=== PATIENT | female | born 1945 | race Caucasian/White ===

== ENCOUNTER 2018-05-26 05:17 | Inpatient (IN) | payer MEDICARE, BC ==
[~2018-05-26] VITALS: Ht 170.2 cm; Wt 81.0 kg
[2018-05-26] MEDS ORDERED: SIMV20TA5 PO (05:38)
[2018-05-26] MEDS ORDERED: LOSA25TA96 PO (05:38)
[2018-05-26 05:44] LABS: BASOPHILS % (AUTO) 0.3 % (0-1); EOSINOPHILS # (AUTO) 0.1 X10'3 (0-0.9); EOSINOPHILS % (AUTO) 1.3 % (0-6); HEMATOCRIT 41.4 % (35.0-45.0); HEMOGLOBIN 13.9 g/dl (12.0-16.0); LYMPHOCYTES # (AUTO) 1.1 X10'3 (1.1-4.8); LYMPHOCYTES % (AUTO) 15.4 % (21-51); MEAN CORPUSCULAR HEMOGLOBIN 30.6 PG (27.0-31.0); MEAN CORPUSCULAR HGB CONC 33.5 % (33.0-36.5); MEAN CORPUSCULAR VOLUME 91.4 FL (78-98); MEAN PLATELET VOLUME 9.3 FL (7.4-10.4); MONOCYTES # (AUTO) 0.7 X10'3 (0-0.9); MONOCYTES % (AUTO) 10.1 % (2-12); NEUTROPHILS % (AUTO) 72.9 % (42-75); PLATELET COUNT 215 X10'3 (140-440); RED BLOOD COUNT 4.53 X10'6 (4.20-5.60); RED CELL DISTRIBUTION WIDTH 13.4 % (11.5-14.5); WHITE BLOOD COUNT 6.9 X10'3 (4.5-11.0)
[2018-05-26] MEDS ORDERED: aspirin 325mg tablet PO ONE (05:55)
[2018-05-26 06:04] LABS: ALANINE AMINOTRANSFERASE 25 U/L (12-78); ALBUMIN 3.3 G/DL (3.4-5.0); ALBUMIN/GLOBULIN RATIO 0.8 (1.1-1.5); ALKALINE PHOSPHATASE 103 IU/L (46-116); ANION GAP 11 (8-16); ASPARTATE AMINO TRANSFERASE 20 U/L (10-37); BILIRUBIN,TOTAL 0.3 MG/DL (0.1-1.0); BLOOD UREA NITROGEN 16 MG/DL (7-18); BUN/CREATININE RATIO 19.3 (6.6-38.0); CHLORIDE 104 MMOL/L (99-107); CREATININE 0.83 MG/DL (0.40-0.90); GLUCOSE 175 MG/DL (70-104); POTASSIUM 4.2 MMOL/L (3.5-5.1); SODIUM 139 MMOL/L (135-145); TOTAL CARBON DIOXIDE 24.1 MMOL/L (24-32); TOTAL PROTEIN 7.3 G/DL (6.4-8.2); eGFR 67 ML/MIN
[2018-05-26 06:14] LABS: PARTIAL THROMBOPLASTIN TIME 32 SECONDS (22-32); PROTHROMBIN TIME 10.2 SECONDS (9.0-12.0)
[2018-05-26] MEDS ORDERED: ondansetron/PF 4mg/2ml inj IV ONE (06:20)
[2018-05-26] MEDS ORDERED: nitroGLYCERIN 1gm ointment UD TP ONE (06:30)
[2018-05-26] MEDS ORDERED: potassium Cl 40MEQ/NS 500ml 500 ML IV PRN ×2 (07:50)
[2018-05-26] MEDS ORDERED: magnesium 4gm in 100ml NS 100 ML IV PRN (07:50)
[2018-05-26] MEDS ORDERED: morphine 2 MG/ML inj. syringe IV PRN ×2 (07:50)
[2018-05-26] MEDS ORDERED: magnesium Cl slow-release 64mg tablet PO PRN (07:50)
[2018-05-26] MEDS ORDERED: HYDROcodone/acetaminophen 10/325mg tab PO PRN (07:50)
[2018-05-26] MEDS ORDERED: magnesium hydroxide 30ml (MOM) UD suspension PO PRN (07:50)
[2018-05-26] MEDS ORDERED: HYDROcodone/acetaminophen 5mg/325mg tablet PO PRN (07:50)
[2018-05-26] MEDS ORDERED: potassium Cl 20 mEq SR tablet PO PRN ×2 (07:50)
[2018-05-26] MEDS ORDERED: bisacodyl 10mg suppository rectal RC PRN (07:50)
[2018-05-26] MEDS ORDERED: ondansetron/PF 4mg/2ml inj IV PRN (07:50)
[2018-05-26] MEDS ORDERED: mag hydrox/Alum hydrox/simeth 30ml oral suspension PO PRN (07:50)
[2018-05-26] MEDS ORDERED: guaiFENesin 200 MG/10 ML oral syrup UD cup PO PRN (08:00)
[2018-05-26] MEDS: nitroGLYCERIN 0.2mg/hour patch TD SCH (08:00)
[2018-05-26] MEDS: K and/or MAG REPLACEMENT MC SCH (08:00)
[2018-05-26] MEDS: aspirin 81mg tablet.DR PO SCH (08:00)
[2018-05-26] MEDS ORDERED: metoprolol tartrate 12.5mg (1/2 tablet) PO SCH (08:00)
[2018-05-26] MEDS ORDERED: enoxaparin 40mg/0.4ml syringe SUBCUT SCH (08:00)
[2018-05-26] MEDS ORDERED: nitroGLYCERIN 0.4mg SUBLingual tab SL PRN (08:05)
[2018-05-26] MEDS ORDERED: metoprolol tartrate 1mg/ml inj IV PRN (08:05)
[2018-05-26] MEDS ORDERED: aminophylline 250mg/10ml inj. IV PRN (08:05)
[2018-05-26] MEDS ORDERED: regadenoson 0.4mg/5ml syringe IV PRN (08:05)
[2018-05-26] MEDS: pantoprazole 40 MG vial IV SCH (08:37)
[2018-05-26] MEDS: docusate sod 100mg capsule PO SCH ×2 (08:39→19:38)
[2018-05-26] MEDS: azithromycin/NS 500mg/250ml 250 ML IV SCH (08:46)
[2018-05-26] MEDS ORDERED: heparin 10,000 units/1 ML INJ IV ONE (10:00)
[2018-05-26] MEDS ORDERED: heparin 10,000 units/1 ML INJ IV PRN (10:00)
[2018-05-26] MEDS: heparin 25,000 UNIT/250ml bag 250 ML IV SCH ×3 (10:40→20:35)
[2018-05-26] MEDS ORDERED: tirofiban 5mg in NS 100mL 100 ML IV SCH (16:00)
[2018-05-26 16:45] VITALS: BP 141/80
[2018-05-26] MEDS: tirofiban 5mg in NS 100mL 100 ML IV SCH ×2 (17:06→22:36)
[2018-05-26] MEDS ORDERED: temazepam 15mg capsule PO PRN (17:15)
[2018-05-26 18:00] VITALS: BP 151/83
[2018-05-26] MEDS: acetaminophen 325mg tablet PO PRN (19:17)
[2018-05-26] MEDS: metoprolol tartrate 25mg tablet PO SCH (19:39)
[2018-05-26 22:00] VITALS: BP 139/79
[2018-05-27] VITALS (11 sets, daily range): BP systolic 115–150; BP diastolic 56–86
[2018-05-27 03:26] LABS: ALANINE AMINOTRANSFERASE 26 U/L (12-78); ALBUMIN/GLOBULIN RATIO 0.8 (1.1-1.5); ALKALINE PHOSPHATASE 86 IU/L (46-116); ANION GAP 8 (8-16); ASPARTATE AMINO TRANSFERASE 59 U/L (10-37); BILIRUBIN,TOTAL 0.4 MG/DL (0.1-1.0); BLOOD UREA NITROGEN 13 MG/DL (7-18); BUN/CREATININE RATIO 15.9 (6.6-38.0); CALCIUM 8.8 MG/DL (8.5-10.1); CHLORIDE 106 MMOL/L (99-107); CHOL/HDL RATIO 4.4 (0.00-4.99); CHOLESTEROL 153 MG/DL (0-200); CREATININE 0.82 MG/DL (0.40-0.90); GLUCOSE 106 MG/DL (70-104); HDL CHOLESTEROL 35 MG/DL (35-60); LDL CHOLESTEROL 90 MG/DL (50-100); POTASSIUM 3.9 MMOL/L (3.5-5.1); SODIUM 142 MMOL/L (135-145); TOTAL CARBON DIOXIDE 28.4 MMOL/L (24-32); TOTAL PROTEIN 6.9 G/DL (6.4-8.2); TRIGLYCERIDES 137 MG/DL (20-135); eGFR 68 ML/MIN
[2018-05-27 03:30] LABS: BASOPHILS % (AUTO) 0.5 % (0-1); EOSINOPHILS # (AUTO) 0.1 X10'3 (0-0.9); EOSINOPHILS % (AUTO) 0.7 % (0-6); HEMATOCRIT 40.2 % (35.0-45.0); HEMOGLOBIN 13.4 g/dl (12.0-16.0); LYMPHOCYTES # (AUTO) 1.4 X10'3 (1.1-4.8); LYMPHOCYTES % (AUTO) 17.7 % (21-51); MEAN CORPUSCULAR HEMOGLOBIN 30.7 PG (27.0-31.0); MEAN CORPUSCULAR HGB CONC 33.4 % (33.0-36.5); MEAN CORPUSCULAR VOLUME 91.9 FL (78-98); MEAN PLATELET VOLUME 10.3 FL (7.4-10.4); MONOCYTES # (AUTO) 0.7 X10'3 (0-0.9); MONOCYTES % (AUTO) 8.9 % (2-12); NEUTROPHILS # (AUTO) 5.7 X10'3 (1.8-7.7); NEUTROPHILS % (AUTO) 72.2 % (42-75); PLATELET COUNT 217 X10'3 (140-440); RED BLOOD COUNT 4.38 X10'6 (4.20-5.60); RED CELL DISTRIBUTION WIDTH 13.5 % (11.5-14.5); WHITE BLOOD COUNT 7.9 X10'3 (4.5-11.0)
[2018-05-27] MEDS: tirofiban 5mg in NS 100mL 100 ML IV SCH (03:57)
[2018-05-27] MEDS: normal saline 1000ml 1,000 ML IV SCH ×2 (04:06→07:15)
[2018-05-27] MEDS: acetaminophen 325mg tablet PO PRN (04:13)
[2018-05-27] MEDS ORDERED: nitroGLYCERIN-Tridil 50MG/D5W 250 ML IV ONE (07:31)
[2018-05-27] MEDS ORDERED: iohexol 350MG/ML 100ml bottle IV ONE ×2 (07:31→08:34)
[2018-05-27] MEDS ORDERED: heparin 1,000unit/ml 10ml vial 10 ML ONE (07:31)
[2018-05-27] MEDS ORDERED: midazolam 2 mg/2 ml injection ONE (07:31)
[2018-05-27] MEDS ORDERED: iohexol 350 MG/ML 50ML vial IV ONE (07:31)
[2018-05-27] MEDS ORDERED: fentaNYL/PF 50MCG/1 ML 2ML syringe ONE (07:31)
[2018-05-27] MEDS ORDERED: LIDOcaine 1% (10mg/ml)w/preservative injection 20ml MDV ONE (07:31)
[2018-05-27] MEDS: pantoprazole 40 MG vial IV SCH (08:00)
[2018-05-27] MEDS: nitroGLYCERIN 0.2mg/hour patch TD SCH (08:00)
[2018-05-27] MEDS: aspirin 81mg tablet.DR PO SCH (08:00)
[2018-05-27] MEDS: docusate sod 100mg capsule PO SCH ×2 (08:00→20:10)
[2018-05-27] MEDS: metoprolol tartrate 25mg tablet PO SCH ×2 (08:00→20:12)
[2018-05-27] MEDS: azithromycin/NS 500mg/250ml 250 ML IV SCH (08:00)
[2018-05-27] MEDS: K and/or MAG REPLACEMENT MC SCH (08:00)
[2018-05-27] MEDS ORDERED: atorvastatin 20mg tablet PO SCH ×2 (08:00)
[2018-05-27] MEDS ORDERED: clopidogrel 300mg tablet ONE (08:54)
[2018-05-27] MEDS ORDERED: normal saline 1000ml 1,000 ML IV ONE (10:40)
[2018-05-27] MEDS ORDERED: cyclobenzaprine 10mg tablet PO PRN (10:45)
[2018-05-27] MEDS ORDERED: HYDROcodone/acetaminophen 10/325mg tab PO PRN (10:45)
[2018-05-27] MEDS ORDERED: OXAZEpam 15mg capsule PO PRN (10:45)
[2018-05-27] MEDS ORDERED: acetaminophen 325mg tablet PO PRN (10:45)
[2018-05-27] MEDS ORDERED: clopidogrel 300mg tablet PO ONE (10:45)
[2018-05-27] MEDS ORDERED: magnesium hydroxide 30ml (MOM) UD suspension PO SCH (21:00)
[2018-05-28 06:00] VITALS: BP 123/64
[2018-05-28 07:15] VITALS: BP_SYST 123
[2018-05-28] MEDS: docusate sod 100mg capsule PO SCH (07:15)
[2018-05-28] MEDS: metoprolol tartrate 25mg tablet PO SCH (07:15)
[2018-05-28] MEDS: pantoprazole 40 MG vial IV SCH (07:15)
[2018-05-28] MEDS: azithromycin/NS 500mg/250ml 250 ML IV SCH (07:16)
[2018-05-28 07:44] LABS: BASOPHILS % (AUTO) 0.5 % (0-1); EOSINOPHILS # (AUTO) 0.1 X10'3 (0-0.9); EOSINOPHILS % (AUTO) 1.6 % (0-6); HEMATOCRIT 39.2 % (35.0-45.0); HEMOGLOBIN 12.9 g/dl (12.0-16.0); LYMPHOCYTES # (AUTO) 1.2 X10'3 (1.1-4.8); LYMPHOCYTES % (AUTO) 19.7 % (21-51); MEAN CORPUSCULAR HEMOGLOBIN 30.2 PG (27.0-31.0); MEAN CORPUSCULAR HGB CONC 32.8 % (33.0-36.5); MEAN CORPUSCULAR VOLUME 91.9 FL (78-98); MONOCYTES # (AUTO) 0.6 X10'3 (0-0.9); MONOCYTES % (AUTO) 9.7 % (2-12); NEUTROPHILS # (AUTO) 4.1 X10'3 (1.8-7.7); NEUTROPHILS % (AUTO) 68.5 % (42-75); PLATELET COUNT 191 X10'3 (140-440); RED BLOOD COUNT 4.27 X10'6 (4.20-5.60); RED CELL DISTRIBUTION WIDTH 13.8 % (11.5-14.5); WHITE BLOOD COUNT 5.9 X10'3 (4.5-11.0)
[2018-05-28] MEDS ORDERED: clopidogrel 75mg tablet PO SCH (08:00)
[2018-05-28] MEDS ORDERED: enoxaparin 40mg/0.4ml syringe SUBCUT SCH (08:00)
[2018-05-28] MEDS: K and/or MAG REPLACEMENT MC SCH (08:00)
[2018-05-28] MEDS ORDERED: atorvastatin 20mg tablet PO SCH (08:00)
[2018-05-28] MEDS: nitroGLYCERIN 0.2mg/hour patch TD SCH (08:00)
[2018-05-28 08:05] LABS: ALANINE AMINOTRANSFERASE 22 U/L (12-78); ALBUMIN 2.8 G/DL (3.4-5.0); ALBUMIN/GLOBULIN RATIO 0.7 (1.1-1.5); ALKALINE PHOSPHATASE 70 IU/L (46-116); ANION GAP 5 (8-16); ASPARTATE AMINO TRANSFERASE 33 U/L (10-37); BILIRUBIN,TOTAL 0.4 MG/DL (0.1-1.0); BLOOD UREA NITROGEN 12 MG/DL (7-18); BUN/CREATININE RATIO 15.2 (6.6-38.0); CALCIUM 8.6 MG/DL (8.5-10.1); CHLORIDE 107 MMOL/L (99-107); CREATININE 0.79 MG/DL (0.40-0.90); GLUCOSE 114 MG/DL (70-104); MAGNESIUM 2.1 MG/DL (1.5-2.4); POTASSIUM 4.3 MMOL/L (3.5-5.1); SODIUM 142 MMOL/L (135-145); TOTAL CARBON DIOXIDE 30.4 MMOL/L (24-32); TOTAL PROTEIN 6.6 G/DL (6.4-8.2); eGFR 71 ML/MIN
[2018-05-28] MEDS ORDERED: aspirin 81mg tab.chew PO SCH (08:30)
[2018-05-28] MEDS ORDERED: aspirin 325mg tablet PO SCH (08:30)
[2018-05-28] MEDS ORDERED: NIT5P TD (11:04)
[2018-05-28] MEDS ORDERED: NITR0.4T51 SL (11:04)
[2018-05-28] MEDS ORDERED: CLOP75TA35 PO (11:04)
[2018-05-28] MEDS ORDERED: ASPI81TA52 PO (11:04)
[2018-05-28] MEDS ORDERED: SIMV80TA2 PO (11:04)
[2018-05-28] MEDS ORDERED: METO25TA6 PO (11:04)
== END 2018-05-28 13:30 | disposition home or self-care (01) | DRG 247 ==
LOC: ER 05:18 → ED HOLD 07:50 → OBSVTOIN 09:59 → PCU 3S 16:30
PROVIDERS: ADMIT Internal Medicine; ATTEND Internal Medicine
PROC: 4A023N7 Measurement of Cardiac Sampling and Pressure, Left Heart, Percutaneous Approach (ICD-10-PCS; principal; 2018-05-27)
PROC: 027034Z Dilation of Coronary Artery, One Artery with Drug-eluting Intraluminal Device, Percutaneous Approach (ICD-10-PCS; 2018-05-27)
PROC: B2111ZZ Fluoroscopy of Multiple Coronary Arteries using Low Osmolar Contrast (ICD-10-PCS; 2018-05-27)
PROC: B2151ZZ Fluoroscopy of Left Heart using Low Osmolar Contrast (ICD-10-PCS; 2018-05-27)
DX: I21.4 Non-ST elevation (NSTEMI) myocardial infarction (principal); E78.00 Pure hypercholesterolemia, unspecified; E78.5 Hyperlipidemia, unspecified; H40.9 Unspecified glaucoma; I10 Essential (primary) hypertension; I25.10 Atherosclerotic heart disease of native coronary artery without angina pectoris; J20.9 Acute bronchitis, unspecified; K21.9 Gastro-esophageal reflux disease without esophagitis; K44.9 Diaphragmatic hernia without obstruction or gangrene; Z98.49 Cataract extraction status, unspecified eye; Z88.2 Allergy status to sulfonamides; Z88.8 Allergy status to other drugs, medicaments and biological substances; Z79.899 Other long term (current) drug therapy; Z79.82 Long term (current) use of aspirin
CPT/HCPCS: 93306; 93458; 96372; 96374; 99285; C9600; 36415; 71045; 80053; 80061; 83735; 84484; 85025; 85347; 85610; 85730; 87070; 87502; 87503; 93005; 99152; A4620; A6257; C1725; C1760; C1769; C1874; C9113; G0378; J0456; J1644; J1650; J2001; J2250; J2405; J3010; J3246; J3490; J7030; Q9967

== ENCOUNTER 2023-09-11 09:03 | Day surgery (SDC) | payer MEDICARE, BC ==
[2023-09-08 11:07] LABS: BASOPHILS % (AUTO) 0.5 % (0-1); EOSINOPHILS # (AUTO) 0.1 X10'3 (0-0.9); EOSINOPHILS % (AUTO) 1.4 % (0-6); HEMATOCRIT 40.2 % (35.0-45.0); HEMOGLOBIN 13.6 g/dl (12.0-16.0); LYMPHOCYTES # (AUTO) 0.9 X10'3 (1.1-4.8); LYMPHOCYTES % (AUTO) 18.2 % (21-51); MEAN CORPUSCULAR HEMOGLOBIN 31.1 PG (27.0-31.0); MEAN CORPUSCULAR HGB CONC 33.8 g/dL (33.0-36.5); MEAN CORPUSCULAR VOLUME 91.9 FL (78-98); MEAN PLATELET VOLUME 9.1 FL (7.4-10.4); MONOCYTES # (AUTO) 0.4 X10'3 (0-0.9); MONOCYTES % (AUTO) 8.5 % (2-12); NEUTROPHILS # (AUTO) 3.6 X10'3 (1.8-7.7); NEUTROPHILS % (AUTO) 71.4 % (42-75); PLATELET COUNT 166 X10'3 (140-440); RED BLOOD COUNT 4.38 X10'6 (4.20-5.60); RED CELL DISTRIBUTION WIDTH 13.9 % (11.5-14.5); WHITE BLOOD COUNT 5.1 X10'3 (4.5-11.0)
[2023-09-08 11:19] LABS: APTT 32 SECONDS (22-32); PROTHROMBIN TIME 10.8 SECONDS (9.0-12.0)
[2023-09-08 11:20] LABS: ANION GAP 10 (8-16); BLOOD UREA NITROGEN 15 MG/DL (7-18); BUN/CREATININE RATIO 18.1 (10.0-20.0); CALCIUM 8.4 MG/DL (8.5-10.1); CHLORIDE 108 MMOL/L (99-107); CREATININE 0.83 MG/DL (0.40-0.90); GLUCOSE 123 MG/DL (70-104); POTASSIUM 4.2 MMOL/L (3.5-5.1); SODIUM 144 MMOL/L (135-145); TOTAL CARBON DIOXIDE 26.1 MMOL/L (24-32); eGFR 66 ML/MIN
[2023-09-11] VITALS (10 sets, daily range): BP systolic 102–154; BP diastolic 55–78; PULSE 63–88; RESP 14–19; TEMP 98; O2SAT 94–95
[~2023-09-11] VITALS: Ht 170.2 cm; Wt 88.0 kg
[~2023-09-11 09:03] MED LIST: CLOP75TA33 PO; LOSA-416 PO; METO25TA6 PO; NITR0.4T51 SL; ROSU40TA22 PO
[2023-09-11] MEDS ORDERED: ACET-812 PO (10:01)
[2023-09-11] MEDS ORDERED: LORA10TA7 PO (10:04)
[2023-09-11] MEDS ORDERED: FAMO10TA41 PO (10:04)
[2023-09-11] MEDS ORDERED: CYAN-34 PO (10:04)
[2023-09-11] MEDS ORDERED: UBID100C16 PO (10:06)
[2023-09-11] MEDS ORDERED: ASPI-1265 PO (10:06)
[2023-09-11] MEDS ORDERED: OMEG1CAP46 PO (10:06)
[2023-09-11] MEDS ORDERED: FOLI1TAB2 PO (10:06)
[2023-09-11] MEDS: LORazepam 0.5 MG tablet PO PRN (10:11)
[2023-09-11] MEDS: diphenhydrAMINE 25mg capsule PO PRN (10:11)
[2023-09-11] MEDS: normal saline 1,000 ML IV SCH (10:13)
[2023-09-11] MEDS ORDERED: LIDOcaine 1% (10mg/ml) 2ml vial ONE (10:47)
[2023-09-11] MEDS ORDERED: fentaNYL/PF 50MCG/1 ML 2ML syringe ONE (10:47)
[2023-09-11] MEDS ORDERED: verapamil 2.5 mg/ml inj IV ONE (10:47)
[2023-09-11] MEDS ORDERED: nitroGLYCERIN 500mcg/5mL D5W 5 ML IV ONE ×2 (10:48→12:58)
[2023-09-11] MEDS ORDERED: iohexol 350MG/ML 100ml bottle IV ONE ×2 (10:48→12:17)
[2023-09-11] MEDS ORDERED: midazolam 1 mg/ML 2ml injection ONE (10:48)
[2023-09-11] MEDS ORDERED: iohexol 350 MG/ML 50ML vial IV ONE ×2 (10:48→12:47)
[2023-09-11] MEDS ORDERED: heparin 1,000unit/ml 10ml vial 10 ML ONE (10:48)
[2023-09-11] MEDS ORDERED: heparin 25,000 UNIT/250ml bag 250 ML IV ONE (12:26)
[2023-09-11] MEDS ORDERED: clopidogrel 300mg tablet ONE (13:05)
[2023-09-12] MEDS ORDERED: aspirin 81mg, enteric-coated 1 TAB TABLET.DR PO SCH (08:00)
== END 2023-09-11 18:45 | disposition home or self-care (01) ==
LOC: SSTAY O 09:03
PROVIDERS: ATTEND Internal Medicine Cardiovascular Disease
DX: I25.10 Atherosclerotic heart disease of native coronary artery without angina pectoris (principal); I10 Essential (primary) hypertension; E78.5 Hyperlipidemia, unspecified; I34.0 Nonrheumatic mitral (valve) insufficiency; E66.9 Obesity, unspecified; G47.33 Obstructive sleep apnea (adult) (pediatric); Z79.82 Long term (current) use of aspirin; Z79.899 Other long term (current) drug therapy; Z90.89 Acquired absence of other organs; Z95.5 Presence of coronary angioplasty implant and graft; Z98.41 Cataract extraction status, right eye; Z98.890 Other specified postprocedural states; Z68.30 Body mass index [BMI] 30.0-30.9, adult; Z88.0 Allergy status to penicillin; Z88.2 Allergy status to sulfonamides; Z82.49 Family history of ischemic heart disease and other diseases of the circulatory system
CPT/HCPCS: 36415; 80048; 85025; 85347; 85610; 85730; 93005; 93458; 99152; 99153; A6258; C1874; C9600; J1644; J2250; J3010; J3490; J7030; Q0163; Q9967; 76937; 96360; A6402; C1725; C1751; C1769; C1894

== ENCOUNTER 2023-10-09 06:26 | Day surgery (SDC) | payer MEDICARE, BC ==
[2023-10-03 10:42] LABS: BASOPHILS % (AUTO) 0.7 % (0-1); EOSINOPHILS # (AUTO) 0.1 X10'3 (0-0.9); EOSINOPHILS % (AUTO) 1.6 % (0-6); LYMPHOCYTES # (AUTO) 1.2 X10'3 (1.1-4.8); LYMPHOCYTES % (AUTO) 19.9 % (21-51); MEAN CORPUSCULAR HEMOGLOBIN 31.4 PG (27.0-31.0); MEAN CORPUSCULAR HGB CONC 33.9 g/dL (33.0-36.5); MEAN CORPUSCULAR VOLUME 92.6 FL (78-98); MEAN PLATELET VOLUME 9.8 FL (7.4-10.4); MONOCYTES # (AUTO) 0.4 X10'3 (0-0.9); MONOCYTES % (AUTO) 6.5 % (2-12); NEUTROPHILS # (AUTO) 4.2 X10'3 (1.8-7.7); NEUTROPHILS % (AUTO) 71.3 % (42-75); PRE OP HEMATOCRIT 39.2 % (35.0-45.0); PRE OP HEMOGLOBIN 13.3 g/dL (12.0-16.0); PRE OP PLATELET COUNT 170 X10'3 (140-440); PRE OP WHITE BLOOD COUNT 5.9 10'3 (4.8-10.8); RED BLOOD COUNT 4.24 X10'6 (4.20-5.60); RED CELL DISTRIBUTION WIDTH 14.3 % (11.5-14.5)
[2023-10-03 10:58] LABS: ALBUMIN 3.1 G/DL (3.4-5.0); ALBUMIN/GLOBULIN RATIO 0.7 (1.1-1.5); ALKALINE PHOSPHATASE 86 IU/L (46-116); BLOOD UREA NITROGEN 18 MG/DL (7-18); BUN/CREATININE RATIO 19.8 (10.0-20.0); CHLORIDE 107 MMOL/L (99-107); CREATININE 0.91 MG/DL (0.40-0.90); PRE OP ALT 26 U/L (30-65); PRE OP ANION GAP 10 (8-16); PRE OP AST 16 U/L (10-37); PRE OP BILIRUB, TOTAL 0.4 MG/DL (0.0-1.0); PRE OP GLUCOSE 139 MG/DL (70-104); PRE OP SODIUM 143 MMOL/L (135-145); TOTAL CARBON DIOXIDE 25.6 MMOL/L (24-32); TOTAL PROTEIN 7.4 G/DL (6.4-8.2); eGFR 60 ML/MIN
[2023-10-03 11:04] LABS: PRE OP POTASSIUM 4.3 MMOL/L (3.4-5.1)
[~2023-10-09] VITALS: Ht 170.2 cm; Wt 90.2 kg
[2023-10-09] MEDS: cefazolin 2gm/D5W 100mL 100 ML IV ONE (05:30)
[~2023-10-09 06:26] MED LIST changes: +ACET-812 PO; +ASPI-1265 PO; +CHOL50004 PO; +CLOT10TR5 PO; +CYAN-34 PO; +DOCUMENT DATE & TIME OF BETA-BLOCKER PO ONE; +FAMO10TA41 PO; +FLUT16SP2 BOTHNARES; +FOLI1TAB2 PO; +LORA10TA7 PO; -LOSA-416 PO; +LOSA25TA41 PO; +OMEG1CAP46 PO
[2023-10-09] MEDS ORDERED: LIDOcaine 2% (20mg/ml) 5ml vial ONE (06:56)
[2023-10-09 07:00] VITALS: BP 127/79; PULSE 62; RESP 16; TEMP 98.4; O2SAT 97
[2023-10-09] MEDS: famotidine 20mg tablet PO ONE (07:43)
[2023-10-09] MEDS: ringers solution, lacted 1,000 ML IV SCH (07:43)
[2023-10-09] MEDS ORDERED: proCHLORperazine 10 MG/2 ml inj IV PRN (09:05)
[2023-10-09] MEDS ORDERED: morphine 2 MG/ML inj. syringe IV PRN (09:05)
[2023-10-09] MEDS ORDERED: morphine 4 MG/ML inj SYRINge IV PRN (09:05)
[2023-10-09] MEDS ORDERED: ringers solution, lacted 1,000 ML IV SCH (09:05)
[2023-10-09] MEDS ORDERED: meperidine/PF 25mg/ml syringe IV PRN ×3 (09:05)
[2023-10-09] MEDS ORDERED: ondansetron/PF 4mg/2ml inj IV PRN (09:05)
[2023-10-09] MEDS ORDERED: midazolam 1 mg/ML 2ml injection ONE (09:25)
[2023-10-09] MEDS ORDERED: fentaNYL/PF 50MCG/1 ML 2ML syringe ONE (09:25)
[2023-10-09] MEDS ORDERED: propofol inj 20 ML IV ONE (09:25)
[2023-10-09] MEDS ORDERED: sevoflurane 250ml liquid IH ONE (09:27)
[2023-10-09] MEDS ORDERED: triamcinolone acetonide 40mg/ml inj ONE (09:41)
[2023-10-09 09:53] VITALS: BP 120/57; PULSE 67; RESP 16; O2SAT 94
[2023-10-09] MEDS: triamcinolone acetonide 40mg/ml inj ONE ×2 (09:58→09:59)
[2023-10-09 10:00] VITALS: BP 130/64; PULSE 62; RESP 12; O2SAT 93
[2023-10-09] MEDS: BUPIVAcaine/PF 2.5mg/ml (0.25%) 10ml vial ONE (10:00)
[2023-10-09] MEDS: LIDOcaine 2% (20mg/ml) 5ml vial ONE (10:01)
[2023-10-09 10:10] VITALS: BP 126/72; PULSE 64; RESP 16; O2SAT 93
[2023-10-09 10:20] VITALS: BP 135/68; PULSE 60; RESP 12; O2SAT 94
[2023-10-09 10:30] VITALS: BP 140/67; PULSE 54; RESP 16; O2SAT 95
== END 2023-10-09 10:53 | disposition home or self-care (01) ==
LOC: PAS 06:26
PROVIDERS: ATTEND Orthopaedic Surgery Hand Surgery
DX: G56.02 Carpal tunnel syndrome, left upper limb (principal); M18.12 Unilateral primary osteoarthritis of first carpometacarpal joint, left hand; E11.9 Type 2 diabetes mellitus without complications; Z79.899 Other long term (current) drug therapy; G47.30 Sleep apnea, unspecified; Z98.890 Other specified postprocedural states; Z88.2 Allergy status to sulfonamides; Z88.1 Allergy status to other antibiotic agents; Z95.5 Presence of coronary angioplasty implant and graft
CPT/HCPCS: 20600; 36415; 64721; 80053; 82948; 85025; J0690; J2250; J2704; J3010; J3301; J3490; J7030; J7120; Z7506; Z7512; A4215; A6449

== ENCOUNTER 2023-11-20 07:52 | Day surgery (SDC) | payer MEDICARE, BC ==
[2023-11-15 11:36] LABS: BASOPHILS % (AUTO) 0.7 % (0-1); EOSINOPHILS # (AUTO) 0.1 X10'3 (0-0.9); EOSINOPHILS % (AUTO) 1.4 % (0-6); LYMPHOCYTES # (AUTO) 1.3 X10'3 (1.1-4.8); LYMPHOCYTES % (AUTO) 18.1 % (21-51); MEAN CORPUSCULAR HGB CONC 33.6 g/dL (33.0-36.5); MEAN CORPUSCULAR VOLUME 92.2 FL (78-98); MEAN PLATELET VOLUME 9.1 FL (7.4-10.4); MONOCYTES # (AUTO) 0.5 X10'3 (0-0.9); MONOCYTES % (AUTO) 6.6 % (2-12); NEUTROPHILS # (AUTO) 5.2 X10'3 (1.8-7.7); NEUTROPHILS % (AUTO) 73.2 % (42-75); PRE OP HEMATOCRIT 41.4 % (35.0-45.0); PRE OP HEMOGLOBIN 13.9 g/dL (12.0-16.0); PRE OP PLATELET COUNT 222 X10'3 (140-440); PRE OP WHITE BLOOD COUNT 7.1 10'3 (4.8-10.8); RED BLOOD COUNT 4.49 X10'6 (4.20-5.60); RED CELL DISTRIBUTION WIDTH 14.1 % (11.5-14.5)
[2023-11-15 11:50] LABS: ALBUMIN 3.3 G/DL (3.4-5.0); ALBUMIN/GLOBULIN RATIO 0.8 (1.1-1.5); ALKALINE PHOSPHATASE 77 IU/L (46-116); BLOOD UREA NITROGEN 15 MG/DL (7-18); CALCIUM 8.9 MG/DL (8.5-10.1); CHLORIDE 105 MMOL/L (99-107); CREATININE 0.94 MG/DL (0.40-0.90); PRE OP ALT 21 U/L (30-65); PRE OP ANION GAP 8 (8-16); PRE OP AST 17 U/L (10-37); PRE OP BILIRUB, TOTAL 0.4 MG/DL (0.0-1.0); PRE OP GLUCOSE 128 MG/DL (70-104); PRE OP POTASSIUM 4.2 MMOL/L (3.4-5.1); PRE OP SODIUM 139 MMOL/L (135-145); TOTAL CARBON DIOXIDE 25.8 MMOL/L (24-32); TOTAL PROTEIN 7.4 G/DL (6.4-8.2); eGFR 57 ML/MIN
[~2023-11-20] VITALS: Ht 170.2 cm; Wt 89.4 kg
[2023-11-20] VITALS (11 sets, daily range): BP systolic 98–152; BP diastolic 47–84; PULSE 51–60; RESP 13–18; TEMP 98; O2SAT 94–97
[2023-11-20] MEDS: DOCUMENT DATE & TIME OF BETA-BLOCKER PO ONE (05:30)
[2023-11-20] MEDS: cefazolin 2gm/D5W 100mL 100 ML IV ONE (05:30)
[~2023-11-20 07:52] MED LIST changes: +BUPIVAcaine/PF 2.5mg/ml (0.25%) 10ml vial ONE; -DOCUMENT DATE & TIME OF BETA-BLOCKER PO ONE; +LIDOcaine 2% (20mg/ml) 5ml vial ONE
[2023-11-20] MEDS: ringers solution, lacted 1,000 ML IV SCH (08:34)
[2023-11-20] MEDS: famotidine 20mg tablet PO ONE (08:34)
[2023-11-20] MEDS ORDERED: fentaNYL/PF 50MCG/1 ML 2ML syringe ONE (08:53)
[2023-11-20] MEDS ORDERED: midazolam 1 mg/ML 2ml injection ONE (08:53)
[2023-11-20] MEDS: BUPIVAcaine/PF 2.5mg/ml (0.25%) 10ml vial IJ ONE (09:24)
== END 2023-11-20 10:53 | disposition home or self-care (01) ==
LOC: PAS 07:52
PROVIDERS: ATTEND Orthopaedic Surgery Hand Surgery
DX: G56.01 Carpal tunnel syndrome, right upper limb (principal); I10 Essential (primary) hypertension; E11.9 Type 2 diabetes mellitus without complications; I25.10 Atherosclerotic heart disease of native coronary artery without angina pectoris; E66.9 Obesity, unspecified; K21.9 Gastro-esophageal reflux disease without esophagitis; G47.33 Obstructive sleep apnea (adult) (pediatric); M19.90 Unspecified osteoarthritis, unspecified site; Z79.82 Long term (current) use of aspirin; Z79.02 Long term (current) use of antithrombotics/antiplatelets; Z79.899 Other long term (current) drug therapy; Z98.890 Other specified postprocedural states; Z68.30 Body mass index [BMI] 30.0-30.9, adult; Z88.2 Allergy status to sulfonamides; Z88.0 Allergy status to penicillin; Z88.8 Allergy status to other drugs, medicaments and biological substances
CPT/HCPCS: 36415; 64721; 80053; 82948; 85025; J0690; J2250; J3010; J3490; J7030; J7120; Z7506; Z7512; A4215; A6449

== ENCOUNTER 2024-07-22 16:55 | Inpatient (IN) | payer MEDICARE, BC ==
[~2024-07-22] VITALS: Ht 170.2 cm; Wt 92.4 kg
[~2024-07-22 16:55] MED LIST changes: -BUPIVAcaine/PF 2.5mg/ml (0.25%) 10ml vial ONE; -CLOT10TR5 PO; -FLUT16SP2 BOTHNARES; -LIDOcaine 2% (20mg/ml) 5ml vial ONE; -ROSU40TA22 PO; +ROSU40TA89 PO
[2024-07-22 18:25] LABS: ALANINE AMINOTRANSFERASE 20 U/L (12-78); ALBUMIN 3.6 G/DL (3.4-5.0); ALBUMIN/GLOBULIN RATIO 0.9 (1.1-1.5); ALKALINE PHOSPHATASE 87 IU/L (46-116); ANION GAP 9 (8-16); ASPARTATE AMINO TRANSFERASE 20 U/L (10-37); BILIRUBIN,TOTAL 0.5 MG/DL (0.1-1.0); BLOOD UREA NITROGEN 22 MG/DL (7-18); BUN/CREATININE RATIO 22.4 (10.0-20.0); CALCIUM 9.2 MG/DL (8.5-10.1); CHLORIDE 107 MMOL/L (99-107); CREATININE 0.98 MG/DL (0.40-0.90); GLUCOSE 163 MG/DL (70-104); LIPASE 28 U/L (16-77); POTASSIUM 3.8 MMOL/L (3.5-5.1); SODIUM 142 MMOL/L (135-145); TOTAL PROTEIN 7.7 G/DL (6.4-8.2); eCRCL 45 ML/MIN; eGFR 55 ML/MIN
[2024-07-22 18:48] LABS: BASOPHILS % (AUTO) 0.5 % (0-1); EOSINOPHILS % (AUTO) 0.5 % (0-6); HEMATOCRIT 41.5 % (35.0-45.0); LYMPHOCYTES % (AUTO) 10.7 % (21-51); MEAN CORPUSCULAR HEMOGLOBIN 31.1 PG (27.0-31.0); MEAN CORPUSCULAR HGB CONC 33.7 g/dL (33.0-36.5); MEAN CORPUSCULAR VOLUME 92.5 FL (78-98); MONOCYTES # (AUTO) 0.6 X10'3 (0-0.9); NEUTROPHILS # (AUTO) 7.8 X10'3 (1.8-7.7); NEUTROPHILS % (AUTO) 82.3 % (42-75); PLATELET COUNT 165 X10'3 (140-440); RED BLOOD COUNT 4.49 X10'6 (4.20-5.60); WHITE BLOOD COUNT 9.4 X10'3 (4.5-11.0)
[2024-07-22] MEDS: normal saline 1000ML IV soln IVB ONE (18:51)
[2024-07-22] MEDS: normal saline 1000ml 1,000 ML IV ONE (18:52)
[2024-07-22] MEDS: LORazepam 2 mg/ml vial IV ONE ×2 (18:55→22:11)
[2024-07-22] MEDS ORDERED: iohexol 350MG/ML 100ml bottle IV ONE (19:12)
[2024-07-22] MEDS ORDERED: tenecteplase 50mg kit IV ONE ×2 (19:50→22:45)
[2024-07-22] MEDS: tenecteplase 50mg kit IV ONE ×2 (20:18→20:34)
[2024-07-22 22:45] LABS: APTT 27 SECONDS (22-32); INR 1.1 INR; PROTHROMBIN TIME 11.3 SECONDS (9.0-12.0)
[2024-07-22] MEDS ORDERED: niCARDipine-NS 40mg/200ml IVPB 200 ML IV PRN (22:45)
[2024-07-22] MEDS ORDERED: morphine 4 MG/ML inj SYRINge IV PRN (22:45)
[2024-07-22] MEDS ORDERED: magnesium hydroxide 30ml (MOM) UD suspension PO PRN (22:45)
[2024-07-22] MEDS ORDERED: acetaminophen 325mg tablet PO PRN (22:45)
[2024-07-22] MEDS: LidoCAINE 2% Topical Jelly 11mL syringe (UROJET) TOP ONE (23:39)
[2024-07-22] MEDS: acetaminophen 1,000mg/100ml IV 100 ML IV PRN (23:57)
[2024-07-23] VITALS (17 sets, daily range): BP systolic 103–139; BP diastolic 44–69; PULSE 60–95; RESP 13–25; O2SAT 92–97
[2024-07-23] MEDS: normal saline 1000ml 1,000 ML IV SCH (00:01)
[2024-07-23 00:47] LABS: BILIRUBIN,URINE NEGATIVE (Neg); CLARITY,URINE CLEAR (Clear); COLOR,URINE YELLOW (Yellow); GLUCOSE, URINE NEGATIVE (Neg); KETONES,URINE NEGATIVE (Neg); LEUKOCYTE ESTERASE ,URINE SMALL (Neg); OCCULT BLOOD,URINE SMALL (Neg); PH,URINE 5.5 (4.8-8.0); PROTEIN,URINE NEGATIVE (Neg); UROBILINOGEN,URINE 0.2 E.U/dL (0.2-1.0)
[2024-07-23 01:06] LABS: BACTERIA,URINE FEW /HPF (Neg); NITRITES, URINE NEGATIVE (Neg); SQUAMOUS EPITHELIAL CELL,UR FEW /LPF (FEW); UA COLLECTION TYPE URINAL
[2024-07-23 01:07] LABS: RBC,URINE 0-2 /HPF (0-2)
[2024-07-23] MEDS ORDERED: CALCIUM GLUC 1gm/50ml NACL,iso 50 ML IV SCH (02:30)
[2024-07-23] MEDS ORDERED: PERFLUTREN PROTEIN-A MICROSPHR (Optison) 0.22 MG/ML 3ML VIAL IV PRN (03:55)
[2024-07-23] MEDS: calcium gluconate inj. 2 GM in normal saline 100ml IV soln 100 ML IV ONE (03:56)
[2024-07-23 07:15] LABS: BASOPHILS % (AUTO) 0.2 % (0-1); EOSINOPHILS % (AUTO) 0 % (0-6); HEMOGLOBIN 12.9 g/dl (12.0-16.0); LYMPHOCYTES # (AUTO) 0.6 X10'3 (1.1-4.8); LYMPHOCYTES % (AUTO) 6.1 % (21-51); MEAN CORPUSCULAR HEMOGLOBIN 31.5 PG (27.0-31.0); MEAN CORPUSCULAR HGB CONC 33.9 g/dL (33.0-36.5); MEAN CORPUSCULAR VOLUME 92.9 FL (78-98); MEAN PLATELET VOLUME 10.1 FL (7.4-10.4); MONOCYTES # (AUTO) 0.6 X10'3 (0-0.9); MONOCYTES % (AUTO) 5.9 % (2-12); NEUTROPHILS % (AUTO) 87.8 % (42-75); PLATELET COUNT 153 X10'3 (140-440); RED BLOOD COUNT 4.08 X10'6 (4.20-5.60); RED CELL DISTRIBUTION WIDTH 14.9 % (11.5-14.5); WHITE BLOOD COUNT 10.2 X10'3 (4.5-11.0)
[2024-07-23 07:35] LABS: ANION GAP 10 (8-16); BLOOD UREA NITROGEN 17 MG/DL (7-18); BUN/CREATININE RATIO 19.5 (10.0-20.0); CALCIUM 8.6 MG/DL (8.5-10.1); CHLORIDE 107 MMOL/L (99-107); CHOL/HDL RATIO 3.2 (0.00-4.99); CHOLESTEROL 140 MG/DL (0-200); CREATININE 0.87 MG/DL (0.40-0.90); GLUCOSE 132 MG/DL (70-104); HDL CHOLESTEROL 44 MG/DL (35-60); LDL CHOLESTEROL 65 MG/DL (50-100); MAGNESIUM 3.1 MG/DL (1.5-2.4); PHOSPHORUS 5.6 MG/DL (2.3-4.5); POTASSIUM 4.4 MMOL/L (3.5-5.1); SODIUM 142 MMOL/L (135-145); TOTAL CARBON DIOXIDE 25.5 MMOL/L (24-32); TRIGLYCERIDES 152 MG/DL (20-135); eCRCL 50 ML/MIN; eGFR 63 ML/MIN
[2024-07-23] MEDS ORDERED: nitroGLYCERIN 0.4mg SUBLingual tab SL PRN (08:20)
[2024-07-23 08:58] LABS: HEMOGLOBIN A1C 6.1 % (4.5-6.2)
[2024-07-23 09:34] LABS: THYROID STIMULATING HORMONE 0.68 ulU/ml (0.34-4.50)
[2024-07-23] MEDS: ondansetron/PF 4mg/2ml inj IV PRN (11:10)
[2024-07-23] MEDS: meclizine 12.5mg tablet PO PRN (13:31)
[2024-07-23] MEDS: proCHLORperazine 10 MG/2 ml inj IV PRN (15:26)
[2024-07-23] MEDS ORDERED: ACET-1008 PO (16:11)
[2024-07-23] MEDS ORDERED: FLUT9.9S BOTHNARES (16:11)
[2024-07-23] MEDS ORDERED: CLOT15CR73 TOP (16:13)
[2024-07-23] MEDS: metoprolol tartrate 25mg tablet PO SCH (20:00)
[2024-07-23] MEDS: OMEGA-3/DHA/EPA/FISH OIL 1 EACH CAPSULE.DR PO SCH (20:00)
[2024-07-23] MEDS: atorvastatin 20mg tablet PO SCH (21:00)
[2024-07-23] MEDS: losartan 25mg tablet PO SCH (21:00)
[2024-07-23] MEDS: normal saline 500ml IV soln 500 ML IV ONE (22:55)
[2024-07-23] MEDS ORDERED: normal saline 500ml IV soln 500 ML IV PRN (22:55)
[2024-07-23] MEDS: PHENYLephrine 10mg/ml inj. 50 MG in normal saline 250ml IV soln 245 ML IV PRN (23:45)
[2024-07-24] VITALS (24 sets, daily range): BP systolic 99–142; BP diastolic 42–70; PULSE 55–106; RESP 15–24; O2SAT 90–98
[2024-07-24] MEDS: morphine 2 MG/ML inj. syringe IV PRN (01:18)
[2024-07-24] MEDS: acetaminophen 325mg tablet PO PRN (05:08)
[2024-07-24 06:11] LABS: BASOPHILS % (AUTO) 0.3 % (0-1); EOSINOPHILS % (AUTO) 0.3 % (0-6); HEMATOCRIT 38.8 % (35.0-45.0); HEMOGLOBIN 12.9 g/dl (12.0-16.0); LYMPHOCYTES % (AUTO) 7.8 % (21-51); MEAN CORPUSCULAR HEMOGLOBIN 31.1 PG (27.0-31.0); MEAN CORPUSCULAR HGB CONC 33.2 g/dL (33.0-36.5); MEAN CORPUSCULAR VOLUME 93.6 FL (78-98); MEAN PLATELET VOLUME 10.6 FL (7.4-10.4); MONOCYTES # (AUTO) 1.1 X10'3 (0-0.9); MONOCYTES % (AUTO) 8.8 % (2-12); NEUTROPHILS # (AUTO) 10.1 X10'3 (1.8-7.7); NEUTROPHILS % (AUTO) 82.8 % (42-75); PLATELET COUNT 175 X10'3 (140-440); RED BLOOD COUNT 4.14 X10'6 (4.20-5.60); RED CELL DISTRIBUTION WIDTH 15.8 % (11.5-14.5); WHITE BLOOD COUNT 12.2 X10'3 (4.5-11.0)
[2024-07-24 06:30] LABS: ALBUMIN 2.9 G/DL (3.4-5.0); ANION GAP 7 (8-16); BLOOD UREA NITROGEN 14 MG/DL (7-18); BUN/CREATININE RATIO 16.7 (10.0-20.0); CALCIUM 8.3 MG/DL (8.5-10.1); CHLORIDE 108 MMOL/L (99-107); CREATININE 0.84 MG/DL (0.40-0.90); GLUCOSE 130 MG/DL (70-104); MAGNESIUM 2.1 MG/DL (1.5-2.4); POTASSIUM 3.7 MMOL/L (3.5-5.1); SODIUM 141 MMOL/L (135-145); TOTAL CARBON DIOXIDE 25.8 MMOL/L (24-32); eCRCL 52 ML/MIN; eGFR 65 ML/MIN
[2024-07-24] MEDS: cholecalciferol (vitamin D3) 1,000 unit (25mcg) tablet PO SCH (08:00)
[2024-07-24] MEDS ORDERED: famotidine 20mg tablet PO SCH (08:00)
[2024-07-24] MEDS: loratadine 10mg tablet PO SCH (08:00)
[2024-07-24] MEDS: cyanocobalamin 500mcg tablet PO SCH (08:00)
[2024-07-24 10:32] LABS: PLATELET ESTIMATE NORMAL
[2024-07-24 10:33] LABS: LARGE PLATELETS FEW
[2024-07-24] MEDS: pantoprazole 40 MG vial IV SCH (14:05)
[2024-07-25] VITALS (25 sets, daily range): BP systolic 84–144; BP diastolic 40–93; PULSE 61–93; RESP 11–24; O2SAT 89–96
[2024-07-25 06:39] LABS: BASOPHILS % (AUTO) 0.4 % (0-1); EOSINOPHILS # (AUTO) 0.1 X10'3 (0-0.9); EOSINOPHILS % (AUTO) 0.9 % (0-6); HEMATOCRIT 39.2 % (35.0-45.0); HEMOGLOBIN 12.6 g/dl (12.0-16.0); LYMPHOCYTES # (AUTO) 0.8 X10'3 (1.1-4.8); LYMPHOCYTES % (AUTO) 8.4 % (21-51); MEAN CORPUSCULAR HEMOGLOBIN 31.2 PG (27.0-31.0); MEAN CORPUSCULAR VOLUME 97.6 FL (78-98); MEAN PLATELET VOLUME 10.4 FL (7.4-10.4); MONOCYTES # (AUTO) 0.7 X10'3 (0-0.9); MONOCYTES % (AUTO) 7.6 % (2-12); NEUTROPHILS # (AUTO) 7.8 X10'3 (1.8-7.7); NEUTROPHILS % (AUTO) 82.7 % (42-75); PLATELET COUNT 142 X10'3 (140-440); RED BLOOD COUNT 4.02 X10'6 (4.20-5.60); RED CELL DISTRIBUTION WIDTH 15.4 % (11.5-14.5); WHITE BLOOD COUNT 9.4 X10'3 (4.5-11.0)
[2024-07-25 06:41] LABS: ALBUMIN 2.7 G/DL (3.4-5.0); ANION GAP 8 (8-16); BLOOD UREA NITROGEN 14 MG/DL (7-18); BUN/CREATININE RATIO 22.6 (10.0-20.0); CALCIUM 8.7 MG/DL (8.5-10.1); CHLORIDE 110 MMOL/L (99-107); CREATININE 0.62 MG/DL (0.40-0.90); GLUCOSE 112 MG/DL (70-104); MAGNESIUM 2.1 MG/DL (1.5-2.4); PHOSPHORUS 2.5 MG/DL (2.3-4.5); SODIUM 143 MMOL/L (135-145); eCRCL 70 ML/MIN; eGFR > 90 ML/MIN
[2024-07-25 06:55] LABS: POTASSIUM 4.1 MMOL/L (3.5-5.1)
[2024-07-25] MEDS ORDERED: Melatonin 3mg tablet PO SCH (20:00)
[2024-07-25] MEDS: Melatonin 3mg tablet PO SCH (20:02)
[2024-07-26] VITALS (19 sets, daily range): BP systolic 100–136; BP diastolic 40–78; PULSE 54–83; RESP 10–20; TEMP 97.7–98.3; O2SAT 93–98
[2024-07-26 02:40] LABS: BASOPHILS % (AUTO) 0.5 % (0-1); EOSINOPHILS # (AUTO) 0.2 X10'3 (0-0.9); EOSINOPHILS % (AUTO) 2.1 % (0-6); HEMATOCRIT 34.9 % (35.0-45.0); HEMOGLOBIN 11.9 g/dl (12.0-16.0); LYMPHOCYTES # (AUTO) 0.9 X10'3 (1.1-4.8); LYMPHOCYTES % (AUTO) 12.2 % (21-51); MEAN CORPUSCULAR HEMOGLOBIN 31.4 PG (27.0-31.0); MEAN CORPUSCULAR VOLUME 92.3 FL (78-98); MEAN PLATELET VOLUME 10.3 FL (7.4-10.4); MONOCYTES # (AUTO) 0.7 X10'3 (0-0.9); MONOCYTES % (AUTO) 8.7 % (2-12); NEUTROPHILS # (AUTO) 5.9 X10'3 (1.8-7.7); NEUTROPHILS % (AUTO) 76.5 % (42-75); PLATELET COUNT 138 X10'3 (140-440); RED BLOOD COUNT 3.78 X10'6 (4.20-5.60); RED CELL DISTRIBUTION WIDTH 14.7 % (11.5-14.5); WHITE BLOOD COUNT 7.7 X10'3 (4.5-11.0)
[2024-07-26 03:25] LABS: ALBUMIN 2.6 G/DL (3.4-5.0); ANION GAP 5 (8-16); BLOOD UREA NITROGEN 17 MG/DL (7-18); BUN/CREATININE RATIO 20.5 (10.0-20.0); CALCIUM 8.3 MG/DL (8.5-10.1); CHLORIDE 109 MMOL/L (99-107); CREATININE 0.83 MG/DL (0.40-0.90); GLUCOSE 115 MG/DL (70-104); MAGNESIUM 1.8 MG/DL (1.5-2.4); POTASSIUM 3.8 MMOL/L (3.5-5.1); SODIUM 143 MMOL/L (135-145); eCRCL 53 ML/MIN; eGFR 66 ML/MIN
[2024-07-26] MEDS: docusate sod 100mg capsule PO SCH (11:35)
[2024-07-26] MEDS: lactose-reduced food (Ensure Enlive) - 237ml bottle PO SCH (18:00)
[2024-07-27 02:00] VITALS: BP 109/70; PULSE 68; RESP 19; TEMP 97.1; O2SAT 96
[2024-07-27 06:00] VITALS: BP 133/70; PULSE 68; RESP 19; TEMP 97; O2SAT 94
[2024-07-27 06:19] LABS: BASOPHILS % (AUTO) 0.6 % (0-1); EOSINOPHILS # (AUTO) 0.2 X10'3 (0-0.9); EOSINOPHILS % (AUTO) 2.8 % (0-6); HEMATOCRIT 35.3 % (35.0-45.0); HEMOGLOBIN 11.9 g/dl (12.0-16.0); LYMPHOCYTES # (AUTO) 1.1 X10'3 (1.1-4.8); LYMPHOCYTES % (AUTO) 17.4 % (21-51); MEAN CORPUSCULAR HGB CONC 33.6 g/dL (33.0-36.5); MEAN CORPUSCULAR VOLUME 92.2 FL (78-98); MEAN PLATELET VOLUME 9.5 FL (7.4-10.4); MONOCYTES # (AUTO) 0.6 X10'3 (0-0.9); MONOCYTES % (AUTO) 8.9 % (2-12); NEUTROPHILS # (AUTO) 4.5 X10'3 (1.8-7.7); NEUTROPHILS % (AUTO) 70.3 % (42-75); PLATELET COUNT 147 X10'3 (140-440); RED BLOOD COUNT 3.83 X10'6 (4.20-5.60); RED CELL DISTRIBUTION WIDTH 14.6 % (11.5-14.5); WHITE BLOOD COUNT 6.4 X10'3 (4.5-11.0)
[2024-07-27 06:47] LABS: ALBUMIN 2.6 G/DL (3.4-5.0); ANION GAP 6 (8-16); BLOOD UREA NITROGEN 22 MG/DL (7-18); CALCIUM 8.6 MG/DL (8.5-10.1); CHLORIDE 108 MMOL/L (99-107); CREATININE 0.88 MG/DL (0.40-0.90); GLUCOSE 115 MG/DL (70-104); MAGNESIUM 1.9 MG/DL (1.5-2.4); PHOSPHORUS 3.9 MG/DL (2.3-4.5); POTASSIUM 3.9 MMOL/L (3.5-5.1); SODIUM 144 MMOL/L (135-145); TOTAL CARBON DIOXIDE 29.9 MMOL/L (24-32); eCRCL 50 ML/MIN; eGFR 62 ML/MIN
[2024-07-27 08:00] VITALS: RESP 19; O2SAT 94
[2024-07-27 11:00] VITALS: BP 113/64; PULSE 77; RESP 18; TEMP 97.6; O2SAT 97
== END 2024-07-27 16:16 | disposition home or self-care (01) | DRG 61 ==
LOC: ER 16:56 → ED HOLD 22:46 → CICU 2S 07-23 06:32 → PCU 3S 07-26 14:45
PROVIDERS: ADMIT Internal Medicine Pulmonary Disease; ATTEND Internal Medicine Pulmonary Disease
PROC: 3E03317 Introduction of Other Thrombolytic into Peripheral Vein, Percutaneous Approach (ICD-10-PCS; principal; 2024-07-22)
PROC: 5A09357 Assistance with Respiratory Ventilation, Less than 24 Consecutive Hours, Continuous Positive Airway Pressure (ICD-10-PCS; 2024-07-25)
PROC: 5A09357 Assistance with Respiratory Ventilation, Less than 24 Consecutive Hours, Continuous Positive Airway Pressure (ICD-10-PCS; 2024-07-26)
PROC: 5A09357 Assistance with Respiratory Ventilation, Less than 24 Consecutive Hours, Continuous Positive Airway Pressure (ICD-10-PCS; 2024-07-27)
DX: I63.9 Cerebral infarction, unspecified (principal); G93.6 Cerebral edema; I61.1 Nontraumatic intracerebral hemorrhage in hemisphere, cortical; H81.4 Vertigo of central origin; I25.10 Atherosclerotic heart disease of native coronary artery without angina pectoris; I65.02 Occlusion and stenosis of left vertebral artery; G47.33 Obstructive sleep apnea (adult) (pediatric); I10 Essential (primary) hypertension; E78.00 Pure hypercholesterolemia, unspecified; I35.0 Nonrheumatic aortic (valve) stenosis; Z88.2 Allergy status to sulfonamides; Z88.1 Allergy status to other antibiotic agents; Z79.82 Long term (current) use of aspirin; Z79.899 Other long term (current) drug therapy; Z79.01 Long term (current) use of anticoagulants; Z95.5 Presence of coronary angioplasty implant and graft; Z95.1 Presence of aortocoronary bypass graft
CPT/HCPCS: 36415; 70450; 70496; 70498; 70551; 80048; 80053; 80061; 81001; 82948; 83036; 83690; 83735; 84100; 84443; 85008; 85025; 85610; 85730; 87081; 87088; 93005; 93306; 97110; 97116; 97162; 99291; A4615; A4620; A6258; C1758; G0378; J0131; J0610; J0780; J2060; J2270; J2371; J2405; J2470; J3101; J7030; J7040; J7050; J8597; Q9967

== ENCOUNTER 2024-08-28 10:18 | Day surgery (SDC) | payer MEDICARE, BC ==
[2024-08-27 11:48] LABS: BASOPHILS % (AUTO) 0.7 % (0-1); EOSINOPHILS # (AUTO) 0.1 X10'3 (0-0.9); EOSINOPHILS % (AUTO) 1.4 % (0-6); HEMATOCRIT 40.8 % (35.0-45.0); HEMOGLOBIN 13.8 g/dl (12.0-16.0); LYMPHOCYTES % (AUTO) 14.9 % (21-51); MEAN CORPUSCULAR HEMOGLOBIN 31.2 PG (27.0-31.0); MEAN CORPUSCULAR HGB CONC 33.9 g/dL (33.0-36.5); MEAN CORPUSCULAR VOLUME 92.1 FL (78-98); MEAN PLATELET VOLUME 9.8 FL (7.4-10.4); MONOCYTES # (AUTO) 0.6 X10'3 (0-0.9); MONOCYTES % (AUTO) 8.4 % (2-12); NEUTROPHILS # (AUTO) 5.2 X10'3 (1.8-7.7); NEUTROPHILS % (AUTO) 74.6 % (42-75); PLATELET COUNT 163 X10'3 (140-440); RED BLOOD COUNT 4.43 X10'6 (4.20-5.60); RED CELL DISTRIBUTION WIDTH 14.6 % (11.5-14.5)
[2024-08-27 11:59] LABS: ALBUMIN 3.4 G/DL (3.4-5.0); ANION GAP 6 (8-16); BLOOD UREA NITROGEN 13 MG/DL (7-18); BUN/CREATININE RATIO 14.9 (10.0-20.0); CHLORIDE 106 MMOL/L (99-107); CREATININE 0.87 MG/DL (0.40-0.90); GLUCOSE 107 MG/DL (70-104); POTASSIUM 4.3 MMOL/L (3.5-5.1); SODIUM 144 MMOL/L (135-145); TOTAL CARBON DIOXIDE 31.7 MMOL/L (24-32); eGFR 63 ML/MIN
[2024-08-27 12:38] LABS: APTT 31 SECONDS (22-32); INR 1.1 INR; PROTHROMBIN TIME 11.1 SECONDS (9.0-12.0)
[~2024-08-28] VITALS: Ht 170.2 cm; Wt 86.9 kg
[2024-08-28] VITALS (11 sets, daily range): BP systolic 109–155; BP diastolic 55–74; PULSE 61–72; RESP 12–22; TEMP 98.2; O2SAT 92–98
[~2024-08-28 10:18] MED LIST changes: +ACET-1008 PO; -ACET-812 PO; -ASPI-1265 PO; -CLOP75TA33 PO; +CLOT15CR73 TOP; +FLUT9.9S BOTHNARES; -LOSA25TA41 PO; -NITR0.4T51 SL; -OMEG1CAP46 PO
[2024-08-28] MEDS ORDERED: LOSA25TA41 PO (10:58)
[2024-08-28] MEDS ORDERED: CLOP75TA34 (10:59)
[2024-08-28] MEDS ORDERED: ASPI-1397 PO (11:00)
[2024-08-28] MEDS ORDERED: OMEG10006 PO (11:01)
[2024-08-28] MEDS ORDERED: UBID100C16 PO (11:02)
[2024-08-28] MEDS: LORazepam 0.5 MG tablet PO PRN (12:45)
[2024-08-28] MEDS: normal saline 1,000 ML IV SCH (12:45)
[2024-08-28] MEDS: diphenhydrAMINE 25mg capsule PO PRN (12:47)
[2024-08-28] MEDS ORDERED: LIDOcaine 1% (10mg/ml) 2ml vial ONE (14:04)
[2024-08-28] MEDS ORDERED: heparin 1,000unit/ml 10ml vial 10 ML ONE (14:05)
[2024-08-28] MEDS ORDERED: verapamil 2.5 mg/ml inj IV ONE (14:05)
[2024-08-28] MEDS ORDERED: iohexol 350MG/ML 100ml bottle IV ONE (14:05)
[2024-08-28] MEDS ORDERED: iohexol 350 MG/ML 50ML vial IV ONE (14:05)
[2024-08-28] MEDS ORDERED: nitroGLYCERIN 500mcg/5mL D5W 5 ML IV ONE (14:08)
[2024-08-28] MEDS ORDERED: midazolam 1 mg/ML 2ml injection ONE (14:42)
[2024-08-28] MEDS ORDERED: fentaNYL/PF 50MCG/1 ML 2ML syringe ONE (14:42)
[2024-08-28 15:54] LABS: ISTAT HGB ART 12.9 g/dl (12.0-16.0); ISTAT Hct ART 38 %PCV (35-45); ISTAT O2 SATURATION ARTERIAL 96 % (95-98); ISTAT SOURCE ART
[2024-08-28] MEDS ORDERED: normal saline 1000ml 1,000 ML IV SCH (16:20)
[2024-08-29 06:45] LABS: ISTAT HGB MIX 12.9 g/dl (12.0-16.0); ISTAT Hct MIX 38 %PCV (35-45); ISTAT O2 SATURATION MIX VENOUS 72 % (60-80); ISTAT SOURCE VEN
== END 2024-08-28 19:45 | disposition home or self-care (01) ==
LOC: SSTAY O 10:18
PROVIDERS: ATTEND Internal Medicine Cardiovascular Disease
DX: I25.10 Atherosclerotic heart disease of native coronary artery without angina pectoris (principal); I08.0 Rheumatic disorders of both mitral and aortic valves; I10 Essential (primary) hypertension; E78.5 Hyperlipidemia, unspecified; G47.33 Obstructive sleep apnea (adult) (pediatric); Z79.01 Long term (current) use of anticoagulants; Z88.1 Allergy status to other antibiotic agents; Z98.41 Cataract extraction status, right eye; Z82.49 Family history of ischemic heart disease and other diseases of the circulatory system
CPT/HCPCS: 36415; 80048; 82803; 85014; 85025; 85610; 85730; 93005; 93460; 99152; 99153; A6258; A6402; C1725; C1751; C1769; C1894; J1644; J2003; J2250; J3010; J3490; J7030; Q0163; Q9967; Z7610

== ENCOUNTER 2024-09-04 10:39 | Outpatient (CLI) | payer MEDICARE, BC ==
[~2024-09-04 10:39] MED LIST changes: +ASPI-1397 PO; +CLOP75TA34; -CLOT15CR73 TOP; +LOSA25TA41 PO; +OMEG10006 PO; +UBID100C16 PO; +iohexol 350MG/ML 100ml bottle IV ONE
[2024-09-04 11:14] LABS: BASOPHILS % (AUTO) 0.4 % (0-1); EOSINOPHILS # (AUTO) 0.1 X10'3 (0-0.9); EOSINOPHILS % (AUTO) 1.6 % (0-6); HEMATOCRIT 41.6 % (35.0-45.0); HEMOGLOBIN 13.9 g/dl (12.0-16.0); LYMPHOCYTES % (AUTO) 15.5 % (21-51); MEAN CORPUSCULAR HEMOGLOBIN 30.8 PG (27.0-31.0); MEAN CORPUSCULAR HGB CONC 33.4 g/dL (33.0-36.5); MEAN CORPUSCULAR VOLUME 92.3 FL (78-98); MONOCYTES # (AUTO) 0.5 X10'3 (0-0.9); MONOCYTES % (AUTO) 7.8 % (2-12); NEUTROPHILS # (AUTO) 4.6 X10'3 (1.8-7.7); NEUTROPHILS % (AUTO) 74.7 % (42-75); PLATELET COUNT 202 X10'3 (140-440); RED BLOOD COUNT 4.51 X10'6 (4.20-5.60); RED CELL DISTRIBUTION WIDTH 14.6 % (11.5-14.5); WHITE BLOOD COUNT 6.2 X10'3 (4.5-11.0)
[2024-09-04 11:25] LABS: APTT 31 SECONDS (22-32); PROTHROMBIN TIME 10.9 SECONDS (9.0-12.0)
[2024-09-04] MEDS ORDERED: iohexol 350MG/ML 100ml bottle IV ONE (12:00)
[2024-09-04 12:15] LABS: ALANINE AMINOTRANSFERASE 24 U/L (12-78); ALBUMIN 3.5 G/DL (3.4-5.0); ALBUMIN/GLOBULIN RATIO 0.8 (1.1-1.5); ALKALINE PHOSPHATASE 80 IU/L (46-116); ANION GAP 6 (8-16); ASPARTATE AMINO TRANSFERASE 17 U/L (10-37); BILIRUBIN,TOTAL 0.5 MG/DL (0.1-1.0); BLOOD UREA NITROGEN 15 MG/DL (7-18); BUN/CREATININE RATIO 18.3 (10.0-20.0); CHLORIDE 107 MMOL/L (99-107); CREATININE 0.82 MG/DL (0.40-0.90); GLUCOSE 109 MG/DL (70-104); POTASSIUM 4.1 MMOL/L (3.5-5.1); PRO BRAIN NATRIURETIC PEPTIDE 286 PG/ML (0-450); SODIUM 144 MMOL/L (135-145); TOTAL CARBON DIOXIDE 30.9 MMOL/L (24-32); TOTAL PROTEIN 7.9 G/DL (6.4-8.2); eGFR 67 ML/MIN
== END 2024-09-04 23:59 | disposition home or self-care (01) ==
LOC: RAD 10:39
PROVIDERS: ATTEND Internal Medicine Cardiovascular Disease
DX: I65.23 Occlusion and stenosis of bilateral carotid arteries (principal); I35.0 Nonrheumatic aortic (valve) stenosis; R06.02 Shortness of breath; I65.29 Occlusion and stenosis of unspecified carotid artery; K55.069 Acute infarction of intestine, part and extent unspecified; I25.10 Atherosclerotic heart disease of native coronary artery without angina pectoris; J98.4 Other disorders of lung; J98.11 Atelectasis; N28.1 Cyst of kidney, acquired
CPT/HCPCS: 36415; 71046; 71275; 74174; 75572; 80053; 83880; 85025; 85610; 85730; 93880; Q9967

== ENCOUNTER 2024-09-05 08:12 | Outpatient (CLI) | payer MEDICARE, BC ==
[~2024-09-05] VITALS: Ht 170.2 cm; Wt 87.7 kg
[~2024-09-05 08:12] MED LIST changes: +IODIXANOL 320 MG/ML INFUS..BTL 100ML IV ONE; -iohexol 350MG/ML 100ml bottle IV ONE
[2024-09-05 14:55] VITALS: BP 147/77; PULSE 69; RESP 14; TEMP 96.9; O2SAT 98
== END 2024-09-05 23:59 | disposition home or self-care (01) ==
LOC: TAVR 08:12
PROVIDERS: ATTEND Internal Medicine Cardiovascular Disease
DX: Z53.9 Procedure and treatment not carried out, unspecified reason (principal); R06.02 Shortness of breath; I35.0 Nonrheumatic aortic (valve) stenosis; I65.23 Occlusion and stenosis of bilateral carotid arteries
CPT/HCPCS: 71275; 74174; 75572; Q9967